=== PATIENT | female | born 1985 | race Caucasian/White ===

== ENCOUNTER 2020-02-05 09:46 | Emergency (ER) | payer OTHER ==
[~2020-02-05] VITALS: Ht 165.1 cm; Wt 102.1 kg
[~2020-02-05 09:46] MED LIST: CEPH500 PO; CYCL10 PO; DIPH50 PO; ERYT.5TO BOTHEYES; Excedrin Extra1 EACH PO; HYDACE10B PO; HYDACE5 PO; IBUP800 PO; MELO7.5 PO; Norco 5-325 Ta1 EACH PO; OXYACE5T PO; PERM5TC TOP; PRED20 PO; Pyridium100 MG PO; SULTRIDS PO; TRAM50 PO; TRIA80TC TOP
[2020-02-05] MEDS ORDERED: CEPH500 PO (11:07)
== END 2020-02-05 11:21 | disposition home or self-care (01) ==
LOC: ER 09:46
DX: L03.012 Cellulitis of left finger (principal); J44.9 Chronic obstructive pulmonary disease, unspecified; F17.200 Nicotine dependence, unspecified, uncomplicated; Z88.5 Allergy status to narcotic agent; Z79.899 Other long term (current) drug therapy
CPT/HCPCS: 10060; 99283-25

== ENCOUNTER 2020-05-19 11:49 | Emergency (ER) | payer OTHER ==
[~2020-05-19] VITALS: Ht 165.1 cm; Wt 108.9 kg
[2020-05-19] MEDS ORDERED: Norco 5-325 Ta1 EACH PO (13:55)
[2020-05-19] MEDS ORDERED: CYCL10 PO (13:55)
[2020-05-19] MEDS ORDERED: IBUP600 PO (13:55)
== END 2020-05-19 14:08 | disposition home or self-care (01) ==
LOC: ER 11:49
DX: M54.5 Low back pain (principal); F17.200 Nicotine dependence, unspecified, uncomplicated; X50.0XXA Overexertion from strenuous movement or load, initial encounter
CPT/HCPCS: 96372; 99283-25; A9270; J1885

== ENCOUNTER 2020-08-24 17:21 | Emergency (ER) | payer OTHER ==
[~2020-08-24] VITALS: Ht 167.6 cm; Wt 104.3 kg
[~2020-08-24 17:21] MED LIST changes: +IBUP600 PO
[2020-08-24] MEDS ORDERED: BACITO TOP (18:19)
== END 2020-08-24 18:29 | disposition home or self-care (01) ==
LOC: ER 17:21
DX: L08.9 Local infection of the skin and subcutaneous tissue, unspecified (principal); B95.8 Unspecified staphylococcus as the cause of diseases classified elsewhere; F17.210 Nicotine dependence, cigarettes, uncomplicated
CPT/HCPCS: 90471; 90714; 99283-25

== ENCOUNTER 2020-12-09 19:34 | Emergency (ER) | payer OTHER ==
[~2020-12-09] VITALS: Ht 165.1 cm; Wt 102.1 kg
[~2020-12-09 19:34] MED LIST changes: +BACITO TOP
[2020-12-09] MEDS ORDERED: Amoxicillin500 MG PO (19:56)
== END 2020-12-09 20:32 | disposition home or self-care (01) ==
LOC: ER 19:34
DX: K04.7 Periapical abscess without sinus (principal); J45.909 Unspecified asthma, uncomplicated; F17.210 Nicotine dependence, cigarettes, uncomplicated
CPT/HCPCS: 99282; A9270

== ENCOUNTER 2021-12-16 15:34 | Emergency (ER) | payer OTHER ==
[~2021-12-16] VITALS: Ht 167.6 cm; Wt 95.2 kg
[~2021-12-16 15:34] MED LIST changes: +Amoxicillin500 MG PO
[2021-12-16] MEDS ORDERED: AMOCLA875 PO (15:57)
== END 2021-12-16 16:16 | disposition home or self-care (01) ==
LOC: ER 15:34
DX: K04.7 Periapical abscess without sinus (principal); F17.210 Nicotine dependence, cigarettes, uncomplicated
CPT/HCPCS: 99282

== ENCOUNTER 2023-03-07 14:25 | Emergency (ER) | payer OTHER ==
[~2023-03-07] VITALS: Ht 165.1 cm; Wt 122.5 kg
[~2023-03-07 14:25] MED LIST changes: +AMOCLA875 PO
[2023-03-07 14:35] VITALS: BP 129/79
[2023-03-07 15:25] LABS: Influenza A, PCR NEGATIVE (NEGATIVE); Influenza B, PCR NEGATIVE (NEGATIVE); Resp Syncytial Virus, PCR NEGATIVE (NEGATIVE); SARS-Cov-2 (COVID-19) PCR, MMC NEGATIVE (NEGATIVE)
== END 2023-03-07 16:05 | disposition home or self-care (01) ==
LOC: ER 14:25
PROVIDERS: Physician Assistant
DX: J06.9 Acute upper respiratory infection, unspecified (principal); J45.909 Unspecified asthma, uncomplicated; Z20.822 Contact with and (suspected) exposure to COVID-19; F17.210 Nicotine dependence, cigarettes, uncomplicated; Z79.2 Long term (current) use of antibiotics
CPT/HCPCS: 0241U; 71046; 99283-25; A9270

== ENCOUNTER 2024-10-09 18:46 | Emergency (ER) | payer OTHER ==
[~2024-10-09] VITALS: Ht 165.1 cm; Wt 113.4 kg
[2024-10-09 19:26] VITALS: BP 132/98
[2024-10-09 19:58] LABS: BASOPHILS ABSOLUTE AUTO 0.10 K/mm3 (0.00-0.23); BASOPHILS PERCENT AUTO 1 % (0-2); EOSINOPHILS ABSOLUTE AUTO 0.18 K/mm3 (0.00-0.68); EOSINOPHILS PERCENT AUTO 1 % (0-6); Hematocrit 46.2 % (33.0-51.0); Hemoglobin 15.4 g/dL (11.5-16.0); IMMATURE GRAN ABSOLUTE AUTO 0.05 K/mm3 (0.00-0.10); IMMATURE GRAN PERCENT AUTO 0 % (0-1); LYMPHOCYTES ABSOLUTE AUTO 2.90 K/mm3 (0.84-5.20); LYMPHOCYTES PERCENT AUTO 20 % (21-46); MONOCYTES ABSOLUTE AUTO 0.66 K/mm3 (0.16-1.47); MONOCYTES PERCENT AUTO 5 % (4-13); Mean Corpuscular HGB Conc 33.3 g/dL (31.5-36.5); Mean Corpuscular Volume 92 fL (80-100); NEUTROPHILS ABSOLUTE AUTO 10.66 K/mm3 (1.96-9.15); NEUTROPHILS PERCENT AUTO 73 % (41-73); NRBC ABSOLUTE 0.00 K/mm3 (0.00-0.02); NRBC Auto 0.0 /100 WBC (0.0-0.2); Platelet Count 241 K/mm3 (150-400); RDW Coefficient Variation 12.9 % (11.7-14.2); RDW Standard Deviation 43.7 fL (35.1-46.3)
[2024-10-09 20:21] LABS: Alanine Aminotransfer (ALT/SGP 20 U/L (12-78); Albumin, Blood 3.7 g/dL (3.4-5.0); Albumin/Globulin Ratio 0.9 (0.8-1.8); Anion Gap 6 mmol/L (3-11); Aspartate Aminotrans (AST/SGOT 17 U/L (12-37); Beta HCG, Quantitative, Serum <1 mIU/mL (0-3); Bilirubin, Total 0.4 mg/dL (0.1-1.0); Blood Urea Nitrogen 18 mg/dL (8-24); CO2, Blood 25 mmol/L (21-32); Calcium, Blood 8.4 mg/dL (8.5-10.1); Chloride, Blood 108 mmol/L (98-108); Creatinine, Blood 0.81 mg/dL (0.40-1.00); Globulin, Blood 4.0 g/dL (2.2-4.0); Glucose, Blood 153 mg/dL (70-99); Potassium, Blood 3.8 mmol/L (3.5-5.5); Sodium, Blood 135 mmol/L (136-145); Total Protein, Blood 7.7 g/dL (6.4-8.2)
[2024-10-09 20:34] LABS: Source, Urine Clean Catch
[2024-10-09 20:44] LABS: Bilirubin, Urine Neg (Neg); Color, Urine Yellow (P-Yellow); Glucose Qualitative, Urine Neg (Neg); Ketones, Urine Neg (Neg); Leukocyte Esterase, Urine 1+ (Neg); Protein, Urine 2+ (Neg); Specific Gravity, Urine 1.025 (1.003-1.022); Urobilinogen, Urine 2+ (Normal)
[2024-10-09] MEDS ORDERED: CEFP200 PO (22:50)
== END 2024-10-09 23:02 | disposition home or self-care (01) ==
LOC: ER 18:46
PROVIDERS: Student in an Organized Health Care Education/Training Program
DX: N39.0 Urinary tract infection, site not specified (principal); F17.210 Nicotine dependence, cigarettes, uncomplicated
CPT/HCPCS: 74177; 80053; 81001; 83605; 83690; 84702; 85025; 87086; 99284-25; A9270; Q9967